=== PATIENT | female | born 1935 | race Caucasian/White ===

== ENCOUNTER → 2020-11-06 | Day surgery (SDC) | payer MEDICARE ==
[~2020-11-06] MED LIST: ASPIRIN81 MG PO; DAILY MULTIPLE1 EAC1 PO; LEVBID0.375 MG PO; MENEST0.3 MG VG; VITAMIN B COMPLEX; VITAMIN D310 MC3 PO; ZYRTEC10 M3 PO
[2020-11-06 08:15] LABS: HCT 46.3 % (37.0-47.0); HGB 15.2 g/dl (12.5-16.0); MCH 30.8 pg (25.0-31.0); MCHC 32.8 g/dL (32.0-36.0); MCV 93.9 fL (78.0-100.0); MPV 9.4 fL (6.0-9.5); RBC 4.93 M/uL (4.20-5.40); RDW 13.3 % (11.5-14.0); WBC 4.7 K/uL (4.0-10.5)
[2020-11-06 08:22] LABS: ALBUMIN 3.8 g/dL (3.4-5.0); BILIRUBIN - TOTAL 0.6 mg/dL (0.2-1.0); BUN/CREAT RATIO (CALC) 14.1 RATIO; CREATININE 0.78 mg/dL (0.51-0.95); GLOBULIN (CALCULATION) 3.7 g/dL; POTASSIUM 3.7 mmol/L (3.5-5.1); TOTAL PROTEIN 7.5 g/dL (6.4-8.2)
== END | disposition home or self-care (01) ==
LOC: FAS 07:15
PROVIDERS: Surgery
DX: K29.70 Gastritis, unspecified, without bleeding (principal); B96.81 Helicobacter pylori [H. pylori] as the cause of diseases classified elsewhere; K31.89 Other diseases of stomach and duodenum; K57.30 Diverticulosis of large intestine without perforation or abscess without bleeding; K58.0 Irritable bowel syndrome with diarrhea; F32.9 Major depressive disorder, single episode, unspecified; M19.90 Unspecified osteoarthritis, unspecified site; Z87.891 Personal history of nicotine dependence; Z79.82 Long term (current) use of aspirin; Z79.899 Other long term (current) drug therapy; Z91.011 Allergy to milk products
CPT/HCPCS: 36415; 80053; 88305; 88342; J1610; J2704; J7120